=== PATIENT | female | born 1990 | race Caucasian/White ===

== ENCOUNTER → 2016-07-23 | Outpatient (CLI) | payer OTHER, MEDICAID ==
[~2016-07-23] MED LIST: GLYB125TA PO; IBUP80TA PO; LABE20TAB PO; LEVA500T PO; PERCOCET PO; VITAPRTA PO; [UNRECOGNIZED DRUG - OTHER] PO; glyberide PO; prenatal vitamin PO
[2016-07-23 16:22] LABS: BLOOD UREA NITROGEN 13 MG/DL (7-18); CREATININE FOR GFR 0.59 MG/DL (0.55-1.02); GLOMERULAR FILTRATION RATE > 60.0 (>60)
== END ==
LOC: M LAB 15:04
PROVIDERS: ATTEND Neurological Surgery
DX: Z01.818 Encounter for other preprocedural examination (principal)

== ENCOUNTER → 2016-07-24 | Outpatient (CLI) | payer OTHER, MEDICAID ==
--- NOTE | 2016-07-24 15:42 | REP ---
Clinical: Spondylosis. Technique: AP, lateral, flexion/extension, swimmer's, bilateral oblique and open mouth views. Findings: Lateral view demonstrates mild reversal of normal lordosis which is nonspecific. Alignment is maintained. No acute fracture / compression injury or subluxation. No significant degenerative changes are appreciated. Neural foramen appear patent. C1-C2 articulation and odontoid process are normal. Impression: No significant degenerative changes appreciated. Signed by Jasen Miller MD 07/24/2016 03:33 P
--- NOTE | 2016-07-24 15:44 | REP ---
Clinical: Spondylosis . Technique: AP, lateral, flexion/extension bilateral oblique, and coned-down views. Findings: Alignment and lordosis is maintained. The vertebral bodies including transverse process and spinous processes are intact and normal. There is no evidence for acute fracture / compression injury or subluxation. Minimal endplate sclerosis and disc space narrowing at the L5-S1 level cannot be excluded along with L5 spondylolysis. No further degenerative changes suggested. Impression: Mild degenerative disc space narrowing at the L5-S1 level and L5 spondylolysis without spondylolisthesis cannot be excluded. Signed by Jasen Miller MD 07/24/2016 03:35 P
--- NOTE | 2016-07-25 08:45 | REP ---
MRI BRAIN WITHOUT AND WITH CONTRAST: HISTORY: Galactorrhea. CONTRAST: ProHance 12 mL. There are no areas of abnormal signal intensity in the brain. There is no intraparenchymal hemorrhage, infarct, mass or midline shift. The ventricular system is normal in appearance. There is no extracerebral collection. The pituitary gland is normal in size and signal intensity. The pituitary gland measures 7.2 mm in height. There is homogeneous enhancement with contrast. The infundibulum is midline. The cavernous sinuses, optic chiasm and hypothalamus are normal in appearance. The sinuses are clear. IMPRESSION: There is no intracranial lesion. Signed by Garcia Sahni MD 07/25/2016 08:53 A
== END ==
LOC: M RAD 15:06
PROVIDERS: ATTEND Neurological Surgery
DX: M47.892 Other spondylosis, cervical region (principal); N64.3 Galactorrhea not associated with childbirth; M47.896 Other spondylosis, lumbar region; M51.37 Other intervertebral disc degeneration, lumbosacral region
CPT/HCPCS: 70553; 72052; 72114; A9576

== ENCOUNTER → 2016-08-04 | Outpatient (CLI) | payer OTHER, MEDICAID ==
[~2016-08-04] MED LIST changes: +DRIS50002 PO; +FLUO20CA8 PO; +GLIM4TAB PO; +IRON65TA PO; +METF500T PO
[2016-08-04 14:53] LABS: MEAN CORPUSCULAR HEMOGLOBIN 22.6 pg (27.0-33.0); MEAN CORPUSCULAR HGB CONC 30.5 g/dl (32.0-36.5); MEAN CORPUSCULAR VOLUME 73.9 fl (80.0-96.0); RED CELL DISTRIBUTION WIDTH 15.1 % (11.5-14.5); WHITE BLOOD COUNT 12.4 K/mm3 (4.0-10.0)
== END ==
LOC: M LAB 13:18
PROVIDERS: ATTEND Obstetrics & Gynecology
DX: Z01.818 Encounter for other preprocedural examination (principal)

== ENCOUNTER 2016-08-06 09:05 | Day surgery (SDC) | payer OTHER, MEDICAID ==
[~2016-08-06] VITALS: Ht 165.1 cm; Wt 115.7 kg
[2016-08-06] VITALS (7 sets, daily range): BP systolic 135–159; BP diastolic 71–87
[~2016-08-06 09:05] MED LIST changes: -DRIS50002 PO
[2016-08-06] MEDS ORDERED: LR 1,000 ML IV SCH ×3 (09:15→13:45)
[2016-08-06] MEDS ORDERED: MIDAZOLAM INJ 2 MG/2 ML VIAL (J2250) As Ordered ONE (09:22)
[2016-08-06] MEDS ORDERED: ROCURONIUM BROMIDE 50 MG/5 ML VIAL As Ordered ONE ×2 (09:22→11:20)
[2016-08-06] MEDS ORDERED: PROPOFOL 200 MG/20 ML VIAL As Ordered ONE (09:22)
[2016-08-06] MEDS ORDERED: fentaNYL 250 MCG/5 ML INJECTION (J3010) As Ordered ONE (09:22)
[2016-08-06] MEDS ORDERED: LIDOCAINE 2% INJ 100 MG/5 ML SDV (FOR ANES.) As Ordered ONE (09:22)
[2016-08-06 09:51] LABS: MEAN CORPUSCULAR HEMOGLOBIN 22.9 pg (27.0-33.0); MEAN CORPUSCULAR HGB CONC 30.7 g/dl (32.0-36.5); MEAN CORPUSCULAR VOLUME 74.7 fl (80.0-96.0); RED CELL DISTRIBUTION WIDTH 15.1 % (11.5-14.5)
[2016-08-06] MEDS ORDERED: DRIS50002 PO (10:02)
[2016-08-06 10:14] LABS: CONTROL LINE HCG INT CTR LINE PRESENT
[2016-08-06] MEDS ORDERED: ALBUTEROL SULFATE 2.5 MG/0.5 ML INH NEB SOLN As Ordered ONE (10:24)
[2016-08-06 10:25] LABS: ANION GAP 10 MEQ/L (8-16); BLOOD UREA NITROGEN 8 MG/DL (7-18); CALCIUM LEVEL 8.6 MG/DL (8.5-10.1); CARBON DIOXIDE LEVEL 25 MEQ/L (21-32); CHLORIDE LEVEL 105 MEQ/L (98-107); CREATININE FOR GFR 0.56 MG/DL (0.55-1.02); GLOMERULAR FILTRATION RATE > 60.0 (>60); GLUCOSE, FASTING 178 MG/DL (70-105); POTASSIUM SERUM 4.5 MEQ/L (3.5-5.1); SODIUM LEVEL 140 MEQ/L (136-145)
[2016-08-06] MEDS ORDERED: BUPIVACAINE HCL 0.25% 30 ML VIAL As Ordered ONE (10:26)
[2016-08-06] MEDS ORDERED: ALBUTEROL SULFATE 2.5 MG/0.5 ML INH NEB SOLN INH ONE (10:30)
--- NOTE | 2016-08-06 11:03 | ECGEPIP ---
Stationary ECG Study [facility] Test Date: 2016-08-06 Pat Name: JC BLANC Department: Room: - Gender: F Risk Developer: LASHAE : 1990 Requested By: BHUPINDER RAO Order Number: [id number] Reading MD: Theresa Marcial Measurements Intervals Silver Rate: 81 P: 32 ND: 128 QRS: 53 QRSD: 92 T: 39 QT: 397 QTc: 463 Interpretive Statements SINUS RHYTHM EARLY REPOLAR PROBABLE ST ELEV MORE MARKED C/W 08/06/14 RATE SLOWER CLINICAL CORRELATION Electronically Signed On 08-06-2016 11:02:52 EST by Theresa Marcial
[2016-08-06] MEDS ORDERED: HYDROmorphone HCL 2 MG/ML 1ML VIAL (J1170) As Ordered ONE (11:14)
[2016-08-06] MEDS ORDERED: METOCLOPRAMIDE INJ 10MG/2ML VIAL (J2765) As Ordered ONE (11:14)
[2016-08-06] MEDS ORDERED: METHYLENE BLUE 1% 10 ML VIAL (Q9968) As Ordered ONE (11:25)
[2016-08-06] MEDS ORDERED: dexameTHASONE 4 MG/ML 1ML VIAL (J1100) As Ordered ONE (11:38)
[2016-08-06] MEDS ORDERED: GLYCOPYRROLATE INJ 0.2 MG/ML 2 ML VIAL As Ordered ONE (12:13)
[2016-08-06] MEDS ORDERED: KETOROLAC 60 MG/2 ML VIAL (J1885) As Ordered ONE (12:14)
[2016-08-06] MEDS ORDERED: ONDANSETRON 4MG/2ML VIAL (J2405) As Ordered ONE (12:14)
[2016-08-06] MEDS ORDERED: NEOSTIGMINE 1MG/ML 5 ML SYRINGE (J2710) As Ordered ONE (12:14)
[2016-08-06] MEDS ORDERED: MORPHINE 4 MG/ML 1ML SYRINGE IV PRN (13:45)
[2016-08-06] MEDS ORDERED: zolPIDEM TARTRATE 10MG TAB PO PRN (13:45)
[2016-08-06] MEDS ORDERED: PROMETHAZINE INJ 25 MG/ML VIAL (J2550) IV PRN (13:45)
[2016-08-06] MEDS ORDERED: HYDROmorphone HCL 1 MG/ML SYRINGE (J1170) IV PRN (13:45)
[2016-08-06] MEDS ORDERED: fentaNYL 100 MCG/2 ML INJECTION (J3010) IV PRN (13:45)
[2016-08-06] MEDS ORDERED: PERCOCET 5MG/325MG TAB PO PRN ×3 (13:45)
[2016-08-06] MEDS ORDERED: ONDANSETRON 4MG/2ML VIAL (J2405) IV PRN (13:45)
--- NOTE | 2016-08-06 15:23 | RO ---
DATE OF PROCEDURE: 08/06/2016 PREPROCEDURE DIAGNOSIS: Abnormal uterine bleeding. POSTPROCEDURE DIAGNOSIS: Abnormal uterine bleeding. PROCEDURE PERFORMED: 1. Robotic-assisted laparoscopic hysterectomy. 2. Bilateral salpingectomy. 3. Cystoscopy. SURGEON: Kirsten Miles MD ENTEROSTOMAL THERAPY NURSE: ALEENA Turk ANESTHESIA: General endotracheal anesthesia. ESTIMATED BLOOD LOSS: 100 mL. IV FLUID: 1800 mL of lactated Ringer solution. URINE OUTPUT: 300 mL. SPECIMENS: Bilateral fallopian tubes, cervix and uterus. PREOPERATIVE ANTIBIOTICS: 2 grams of Ancef. OPERATIVE FINDINGS: Patient with normal appearing uterus, bilateral adnexa. There was omentum adhesed to the anterior abdominal wall, which was dissected off prior to the hysterectomy. DESCRIPTION OF PROCEDURE: After informed consent was obtained and written consent was reviewed, the patient was brought to the operating room where general endotracheal anesthesia was obtained. She was then placed in the lithotomy position and was prepped and draped in the normal sterile fashion. A time-out in the operating room was then performed identifying the patient, procedure to be performed as well as drug allergies. Speculum was then placed revealing the cervix. The anterior and posterior aspect of the cervix were grasped with #0 Vicryl. The uterus was then sounded to 11 cm. A medium VCare uterine manipulator was then advanced through the cervical os. The uterine balloon was insufflated with 10 mL of air. The cervical sleeve, as well as vaginal sleeve was advanced down into the vagina. Tom catheter was then placed and set to gravity. Gloves were changed and attention was turned to the patient's abdomen where a Veress needle was placed through the umbilicus. A pneumoperitoneum was obtained with CO2 gas. The supraumbilical area was infused with 0.25% Marcaine. An incision was made in this area and a 12 mm trocar and sleeve was advanced through this incision under direct visualization. Intraabdominal placement was then confirmed. An 8 mm trocar and sleeve was placed in the patient's right side parallel to the umbilicus. This area was infused prior with 0.25% Marcaine. This port was placed under direct visualization. In a similar fashion on the left side of the patient parallel to the umbilicus, an area was infused with 0.25% Marcaine and an 8 mm trocar and sleep was advanced through this incision under direct visualization. An fitness assistant port was placed just above this incision and was infused with 0.25% Marcaine. An incision was made in this area and 8 mm trocar and sleeve was advanced through this incision under direct visualization. Utilizing the da Nellie equipment with monopolar ceci and PK, the right fallopian tube was placed in traction and was dissected along the mesosalpinx and transected at the uterus. It was removed from the patient's abdomen and sent to pathology. In a similar fashion, the left fallopian tube was placed in traction. The mesosalpinx was dissected using Monopolar cautery. The fallopian tube was then transected at the uterus, the fallopian tube was then taken out of the patient's abdomen and sent to pathology. The utero-ovarian ligaments bilaterally were cauterized and ligated with good hemostasis noted. The round ligaments bilaterally were cauterized and ligated. The broad ligaments were dissected out anteriorly creating a bladder flap. The uterine vessels were skeletonized bilaterally, cauterized and ligated with good hemostasis noted. The remainder of the broad and cardinal ligaments were then dissected and ligated with good hemostasis noted. Anterior colpotomy was then made and it was continued around posteriorly. The uterus was then removed from the patient's vagina. The abdomen was irrigated and suctioned. The vaginal cuff was then closed using a V-Loc system in a running fashion until the vaginal cuff was closed. Talya was applied over the surgical sites. The pneumoperitoneum was then released and cystoscopy was performed revealing normal bladder mucosa. No foreign bodies or objects. Bilateral ureteral jets were observed. The cystoscope was then removed from the patient's bladder and the bladder was drained. Attention was then turned to the patient's abdomen where all four port sites were closed with #4-0 Monocryl and dressed with Dermabond. The patient was then awakened from general anesthesia and taken to recovery in stable condition. Counts were correct. Monica Hartmann, my fitness assistant, played a central role in this operation. She assisted with identification of structures, manipulation, as well as port placement and skin closure.
[2016-08-06] MEDS ORDERED: KETOROLAC 30 MG/ML VIAL (J1885) IV SCH (18:00)
[2016-08-06] MEDS ORDERED: SLF 3 ML SYR IV PRN (18:30)
[2016-08-06] MEDS ORDERED: SLF 3 ML SYR IV SCH (22:00)
== END 2016-08-06 21:15 | disposition home or self-care (01) ==
LOC: M SDC 09:05 → M PED 13:59 → M SDC 21:15
PROVIDERS: ATTEND Obstetrics & Gynecology
DX: N92.0 Excessive and frequent menstruation with regular cycle (principal); N72 Inflammatory disease of cervix uteri; E11.9 Type 2 diabetes mellitus without complications; D64.9 Anemia, unspecified; F17.210 Nicotine dependence, cigarettes, uncomplicated; E66.01 Morbid (severe) obesity due to excess calories; J45.909 Unspecified asthma, uncomplicated
CPT/HCPCS: 36415; 58571; 80048; 84703; 85027; 86850; 86900; 86901; 88309; 93005; 96374; J0690; J1100; J1170; J1885; J2250; J2405; J2710; J2765; J3010; Q9968